=== PATIENT | female | born 1950 | race Caucasian/White ===

== ENCOUNTER 2020-11-04 13:41 | Emergency (ER) | payer OTHER ==
[~2020-11-04] VITALS: Ht 167.6 cm; Wt 50.4 kg
--- NOTE | ~2020-11-04 | EMS ---
[address] [address] EMS Patient Care Report Name: SUSANNA NAVA Room #: REG [facility]#: [id number] Admission: 11/04/20 Attend Phys: Discharge: Date of : 46 Report #: [id number] THIS REPORT FOR: //name// Report Transmitted: 11/04/2020 15:59 EMS Care Summary [facility] Incident [id number] @ 11/04/2020 13:02 Incident Location [address] [place] [address] Patient SUSANNA NAVA Female, 70 Years 1950 Patient Address [address] [place] [address] Patient History Diverticulitis,Hypothyroidism, Patient Allergies No known allergies, Patient Medications None Reported, Chief Complaint "I'm constipated" Disposition Transported No Lights/[place] Reason Abdominal Pain/Problems Transported To [facility] Narrative Upon arrival pt was found with LFD. Pt was sitting on bed, a&ox3, airway open, self maintained, respirations regular, pulse regular, pink mucosa, dry, warm, skin. Pt informed crew that she was constipated and needed to be transported to an ED. Pt is a very poor historian and was annoyed that she was being asked [address] [address] EMS Patient Care Report Name: SUSANNA NAVA Room #: REG [facility] Cm#: [id number] Admission: 11/04/20 Attend Phys: Discharge: Date of : 46 Report #: [id number] assessment questions. Pt informed crew that she had not had a bowel movement in a week. Rapid assessment was performed. Vitals were obtained, pt was assisted to stretcher, was secured, and was taken to ambulance. Pt was transported. Michael Torrez attempted doing detailed assessment en route; Pt told michael Torrez "I'm not answering any questions until you give me something for my pain". Pt was very irritable and it was difficult to obtain a medical history due to pt's cooperation. Michael Torrez was able to gather from pt that 20 years ago she had part of her colon removed due to diverticulitis; Since then pt has had problems with constipation. Pt sought medical care at an ED last year for similar symptoms and was sent home being advised to use over the counter products to resolve her constipation. Pt does not have a primary doctor as her PCP retired and she hasn't found a doctor she "trusts". Pt has quit taking her levothyroxine as she has not had a PCP for an unknown time. Vitals were monitored and rechecked. Pt's condition and demeanor remained unchanged. Pt refused to wear a surgical mask in the ambulance and the ED stating "I don't believe in COVID!". Pt care was transferred to ED RN. Pt was assisted to ED bed without complications. Initial Vitals @13:22P: 64,R: 20,BP: 124/64,Pain: 10/10,GCS: 15,SpO2: 98,Revised Trauma: 12, @PTAP: 75,R: 18,BP: 134/87,Pain: 10/10,GCS: 15,Temp: 96.8F,SpO2: 100,Revised Trauma: 12, Assessments @13:18MENTAL:No Abnormalities,SKIN:No Abnormalities,HEENT:Head/Face: No Abnormalities,Eyes: No Abnormalities,Neck/Airway: No Abnormalities,LUNG SOUNDS:Left Lower: Tenderness,Right Lower: Tenderness,ABDOMEN:Left Lower: Tenderness,Right Lower: Tenderness,PELVIS//GI:EXTREMITIES:Left Arm: No Abnormalities,Right Arm: No Abnormalities,Left Leg: No Abnormalities,Right Leg: No Abnormalities,PULSE:NEURO: Impression Constipation 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,BP: 134/87 M,PULSE: 75,RR: 18 R,SPO2: 100 Ox,ETCO2: ,BG: ,PAIN: 10,GCS: 15, 13:01,Call Received 13:01,Psap Call 13:02,Dispatched 13:02,En Route 13:12,On Scene 13:14,At Patient 13:20,Depart Scene 13:22,BP: 124/64 M,PULSE: 64,RR: 20 R,SPO2: 98 Ox,ETCO2: ,BG: ,PAIN: 10,GCS: 15, [facility] [address] [place] [address] EMS Patient Care Report Name: [facility]USANNA NAVA [id number] Admission: 11/04/20 Attend Phys: Discharge: Date of : 46 Report #: [id number] 13:37,At Destination 13:54,Call Closed Disclaimer [email or web address] Copyright 2020 [employer] This EMS Care Summary contains data elements from the applicable legal record (which may be displayed differently). It is designed to provide pertinent information for the following purposes: continuity of care, clinical quality, and state data reporting. The complete legal record is available to ED staff and administrators of the receiving hospital in [employer]'s Patient Tracker. All data is provided "as is."
--- NOTE | 2020-11-04 14:53 | EKG ---
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
[2020-11-04 15:39] LABS: ABSOLUTE NEUTROPHILS 4.2 thou/uL (1.4-8.2); BASOPHILS 0.9 % (0.0-2.0); EOSINOPHILS 3.7 % (0.0-3.0); HEMATOCRIT 35.4 % (37.0-47.0); HEMOGLOBIN 11.8 gm/dL (12.0-15.0); LYMPHOCYTES 20.1 % (24.0-44.0); MCH 30.8 pg (26.0-34.0); MCHC 33.4 g/dL (28.0-37.0); MCV 92.4 fL (80.0-100.0); MONOCYTES 5.9 % (1.0-8.0); PLATELET COUNT 199 thou/uL (150-400); POLYS 69.4 % (36.0-66.0); RBC 3.83 mil/uL (4.20-5.00); RDW 15.1 % (10.5-14.5)
[2020-11-04 15:52] LABS: CALCIUM 8.3 mg/dL (8.5-10.1); CREATININE 1.1 mg/dL (0.6-1.0); POTASSIUM 4.4 mmol/L (3.5-5.1)
[2020-11-04 15:58] LABS: ALBUMIN 3.9 g/dL (3.4-5.0); DIRECT BILIRUBIN 0.1 mg/dL (<0.1-0.2); TOTAL BILIRUBIN 0.4 mg/dL (0.2-1.0); TOTAL PROTEIN 6.9 g/dL (6.4-8.2)
[2020-11-04] MEDS ORDERED: COLACE100 MG PO (17:38)
[2020-11-04 17:46] VITALS: BP 105/67
== END 2020-11-04 17:47 | disposition home or self-care (01) ==
LOC: ER 13:41
PROVIDERS: Nurse Practitioner
DX: K59.00 Constipation, unspecified (principal); R00.1 Bradycardia, unspecified; Z98.890 Other specified postprocedural states; Z88.5 Allergy status to narcotic agent; Z88.2 Allergy status to sulfonamides; Z91.018 Allergy to other foods